=== PATIENT | female | born 1990 | race Caucasian/White ===

== ENCOUNTER 2017-03-12 15:07 | Emergency (ER) | payer MEDICARE, OTHER ==
[2017-03-12 15:24] VITALS: RESP 20
[2017-03-12] MEDS ORDERED: IBUPROFEN 600 MG TAB PO STA (15:42)
[2017-03-12] MEDS ORDERED: ACETAMINOPHEN TAB 500 MG TAB PO STA (15:42)
[2017-03-12] MEDS ORDERED: CEPHALEXIN 500MG STARTER PACK 4 CAP BTL PO STA (15:43)
[2017-03-12] MEDS ORDERED: CEPHALEXIN 500 MG CAP PO STA (15:43)
--- NOTE | 2017-03-12 16:00 | XR ---
EXAMINATION TYPE: XR chest 1V DATE OF EXAM: 03/12/2017 COMPARISON: NONE HISTORY: Cough and fever 5 days TECHNIQUE: Single frontal view of the chest is obtained. FINDINGS: The vague opacity in the left lung base which is of unknown significance. Pleural effusion , or pneumothorax seen. The cardiac silhouette size is within normal limits. The osseous structure s are intact. IMPRESSION: Vague opacity is noted in the left lung base which is of doubtful significance. If there remains clinical concern for an airspace opacity two standard views in the department could be obtai adis.
--- NOTE | 2017-03-12 16:24 | ED ---
General Adult HPI - General Chief complaint: Upper Respiratory Infection Stated complaint: cold & fever Time Seen by Provider: 03/12/17 15:26 Source: patient, RN notes reviewed, old records reviewed Mode of arrival: ambulatory Limitations: no limitations - History of Present Illness Initial comments: This is a 27-year-old female to the ER for evaluation. Patient presents today for evaluation regarding fever. Fever cough and congestion. Runny nose. Green sputum. Patient denies short of breath. No significant medical history. Symptoms for 2-3 days. Patient is also symptomatic fever. No modifying factors or symptoms, to try [id number] cold of flu with no help. A chemistry no sick contacts. Patient denies shortness of breath - Related Data Home Medications Medication Instructions Recorded Confirmed lamoTRIgine [lamoTRIgine] 200 mg PO BID 11/18/14 03/12/17 levETIRAcetam [levETIRAcetam] 1,000 mg PO BID 11/18/14 03/12/17 Omeprazole 20 mg PO DAILY 03/12/17 03/12/17 levETIRAcetam [Keppra] 500 mg PO BID 03/12/17 03/12/17 Allergies Allergy/AdvReac Type Severity Reaction Status Date / Time erythromycin base Allergy Rash/Hives Verified 03/12/17 15:36 guaifenesin [From Robitussin] Allergy Rash/Hives Verified 03/12/17 15:36 amoxicillin AdvReac Nausea & Verified 03/12/17 15:36 Vomiting Review of Systems ROS Statement: Those systems with pertinent positive or pertinent negative responses have been documented in the HPI. ROS Other: All systems not noted in ROS Statement are negative. Past Medical History Past Medical History: Seizure Disorder Additional Past Medical History / Comment(s): autism History of Any Multi-Drug Resistant Organisms: None Reported Past Surgical History: No Surgical Hx Reported Past Psychological History: Anxiety Smoking Status: Never smoker Past Alcohol Use History: None Reported Past Drug Use History: None Reported General Exam Limitations: no limitations General appearance: alert, in no apparent distress Head exam: Present: atraumatic, normocephalic, normal inspection Eye exam: Present: normal appearance, PERRL, EOMI. Absent: scleral icterus, conjunctival injection, periorbital swelling ENT exam: Present: normal exam, mucous membranes moist Neck exam: Present: normal inspection. Absent: tenderness, meningismus, lymphadenopathy Respiratory exam: Present: normal lung sounds bilaterally. Absent: respiratory distress, wheezes, rales, rhonchi, stridor Cardiovascular Exam: Present: regular rate, normal rhythm, normal heart sounds. Absent: systolic murmur, diastolic murmur, rubs, gallop, clicks GI/Abdominal exam: Present: soft, normal bowel sounds. Absent: distended, tenderness, guarding, rebound, rigid Extremities exam: Present: normal inspection, full ROM, normal capillary refill. Absent: tenderness, pedal edema, joint swelling, calf tenderness Back exam: Present: normal inspection Neurological exam: Present: alert, oriented X3, CN II-XII intact Psychiatric exam: Present: normal affect, normal mood Skin exam: Present: warm, dry, intact, normal color. Absent: rash Course Vital Signs 03/12/17 15:21 Temperature 100.5 F H Pulse Rate 100 Respiratory 20 Rate Blood Pressure 141/85 O2 Sat by Pulse 97 Oximetry - Reevaluation(s) Reevaluation #1: 03/12/17 16:24 The patient is in no acute distress, improved fever control Medical Decision Making - Medical Decision Making 27 female in the ER for evaluation. Patient was nonsteroidals and fever. Patient will be treated with a respiratory infection sinusitis. Antibiotics and fever control. Patient can be discharged home, this time patient is in no acute distress - Radiology Data Radiology results: report reviewed, image reviewed Disposition Clinical Impression: Sinusitis, Upper respiratory infection Disposition: HOME SELF-CARE Condition: Good Instructions: Upper Respiratory Infection (ED) Referrals: Rohit Hernandez MD [Primary Care Provider] - 1-2 days
[2017-03-12 16:36] VITALS: BP 132/76; PULSE 89; TEMP 98.5
== END 2017-03-12 16:36 | disposition home or self-care (01) ==
LOC: EC 15:07
DX: J32.9 Chronic sinusitis, unspecified (principal); J06.9 Acute upper respiratory infection, unspecified; G40.909 Epilepsy, unspecified, not intractable, without status epilepticus; Z79.899 Other long term (current) drug therapy; Z88.1 Allergy status to other antibiotic agents; Z88.0 Allergy status to penicillin; Z88.8 Allergy status to other drugs, medicaments and biological substances
CPT/HCPCS: 71010; 99284